=== PATIENT | female | born 1950 | race Caucasian/White ===

== ENCOUNTER → 2018-04-24 | Outpatient (CLI) | payer OTHER ==
[~2018-04-24] MED LIST: NITROGLYCERIN AEROSOL (4.9 GM)
[2018-04-24 09:02] LABS: ANION GAP 15 (8-16); BLOOD UREA NITROGEN 21 mg/dl (7-20); CALCIUM 9.9 mg/dl (8.4-10.2); CARBON DIOXIDE 28 mmol/L (21-31); CHLORIDE 107 mmol/L (97-110); CREATININE 1.23 mg/dl (0.44-1.00); GLUCOSE 116 mg/dl (70-220); POTASSIUM 4.6 mmol/L (3.5-5.1); SODIUM 145 mmol/L (135-144)
[2018-04-24] MEDS: SOD CHLORIDE 0.9% 100 ML (09:56)
[2018-04-24] MEDS: IODIXANOL LOCM 100 ML BTL (09:57)
== END | disposition home or self-care (01) ==
LOC: LAB 08:11
DX: R94.39 Abnormal result of other cardiovascular function study (principal); E11.8 Type 2 diabetes mellitus with unspecified complications
CPT/HCPCS: 75571; 75574; 80048